=== PATIENT | male | born 1980 | race Caucasian/White ===

== ENCOUNTER 2024-01-06 09:18 | Emergency (ER) | payer OTHER, SELFPAY ==
[2024-01-06] VITALS (8 sets, daily range): BP systolic 125–139; BP diastolic 77–94; PULSE 98–112; RESP 12–17; TEMP 36.5; O2SAT 97–100
--- NOTE | ~2024-01-06 | XR_ITS ---
EXAMINATION: XR chest 2V 01/06/2024 09:50 INDICATION: Shortness of breath and weakness PROCEDURE: 2 view chest COMPARISON: 09/14/2015 FINDINGS: The lungs are clear. The cardiomediastinal silhouette is within normal limits. There are no pleural effusions. There is no pneumothorax suspected. IMPRESSION: 1: NO ACUTE CARDIOPULMONARY DISEASE. Reviewed, dictated and finalized at location B.
--- NOTE | 2024-01-06 09:28 | ECG_ITS ---
SEE SCANNED COPY FOR CONFIRMED REPORT. MTDD
[2024-01-06 09:38] LABS: Glucose Point of Care 149 mg/dl (65-105)
[2024-01-06 09:48] LABS: Basophils Absolute Auto 0.1 K/mm3 (0.0-0.1); Basophils Percent Auto 0.9 % (0.2-1.2); Eosinophils Absolute Auto 0.2 K/mm3 (0-0.3); Eosinophils Percent Auto 2.2 % (0-4.4); Hematocrit 49.6 % (42.0-52.0); Hemoglobin 17.3 g/dL (14.0-18.0); Immature Granulocyte Absolute 0.07 K/mm3 (0.00-0.031); Lymphocytes Absolute Auto 1.84 K/mm3 (0.9-3.2); Lymphocytes Percent Auto 27.5 % (18.3-44.2); Mean Corpuscular HGB Conc 34.9 g/dl (32-36); Mean Corpuscular Hemoglobin 32.7 pg (26-34); Mean Corpuscular Volume 93.8 fl (80-100); Mean Platelet Volume 9.4 fl (7.4-10.4); Monocytes Absolute Auto 0.6 K/mm3 (0.1-0.6); Monocytes Percent Auto 8.5 % (2.6-8.5); Neutrophils Percent Auto 59.9 % (45.5-73.1); Platelet Count Result 234 k/mm3 (150-375); Red Blood Count 5.29 M/mm3 (4.6-6.20); Red Cell Distribution Width 11.4 % (11.5-14.5); White Blood Count 6.7 K/mm3 (4.5-10.0)
[2024-01-06 09:58] LABS: Alanine Aminotransferase 74 U/L (6-50); Albumin Level 5.2 g/dL (3.5-5.1); Alkaline Phosphatase 69 U/L (38-126); Anion Gap 16 mmol/L (4-12); Aspartate Amino Transferase 70 U/L (17-59); Blood Urea Nitrogen 19 mg/dL (9-20); Carbon Dioxide 18 mmol/L (22-30); Chloride 102 mmol/L (98-107); Estimated CRCL calculation 92 ml/min; Estimated Glomerular Filt Rate > 60; Glucose 133 mg/dL (65-110); Potassium 5.6 mmol/L (3.4-5.0); Sodium 136 mmol/L (137-145)
[2024-01-06 10:03] LABS: D Dimer < 0.22 ug/mL (<0.48)
[2024-01-06] MEDS: SODIUM CHLORIDE 0.9% IV 1,000 ML 999 ML IV CONT ×2 (10:08→12:04)
[2024-01-06 10:12] LABS: Troponin I < 0.012 ng/mL (0.000-0.034)
--- NOTE | 2024-01-06 11:57 | ED.GENADULT ---
HPI - General Adult General Chief complaint: Unspecified Stated complaint: anxiety Time Seen by Provider: 01/06/24 09:35 Source: patient Mode of arrival: EMS Limitations: no limitations History of Present Illness HPI narrative: Patient is a 43-year-old male who presents the ED via EMS with report of lightheadedness, chest tightness. Patient reports when he woke up this morning he felt somewhat lightheaded. He went to work and began feeling increasingly dizzy/lightheaded, felt near syncopal, developed cold sweats, paresthesias, nausea. He then began feeling short of breath and developed chest tightness/heaviness, described as though something was EMS was then contacted to bring patient here. Patient states he feels improved currently. He denies any other recent illness. Denies focal weakness. Denies history of cardiac disease. Denies history of anxiety. States he has been eating and drinking normally. Related Data Allergies Allergy/AdvReac Type Severity Reaction Status Date / Time No Known Allergies Allergy Unverified 06/13/15 09:49 Review of Systems Review of Systems: CONSTITUTIONAL: See HPI. CARDIOVASCULAR: See HPI. RESPIRATORY: See HPI. GASTROINTESTINAL: See HPI. GENITOURINARY: Denies dysuria or hematuria. MUSCULOSKELETAL: Denies back pain, extremity pain, myalgia. NEUROLOGIC: See HPI. All systems reviewed & are unremarkable except as noted in HPI and below Exam Narrative: GENERAL: Well appearing, well-nourished, non-toxic, in no acute distress. HEAD: Normocephalic, atraumatic. EYES: PERRL/EOMI, conjunctiva clear. No nystagmus. RESPIRATORY: Airway patent, respirations nonlabored. Clear to auscultation bilaterally, no rales, rhonchi, wheezing. No focal lung sounds. CARDIOVASCULAR: Borderline tachycardic with regular rhythm without murmurs, rubs, or gallops. ABDOMINAL: Soft, nontender, nondistended. Normoactive BS. MUSCULOSKELETAL: Moves all extremities. No gross deformities. No lower extremity edema. No calf tenderness. SKIN: Warm, dry, normal color. NEURO: A&O X3. Speech clear. Cranial nerves II-XII grossly intact. Steady gait. No ataxic movements. No focal deficits. PSYCHIATRIC: Mildly anxious. Normal interaction. Course Vital Signs Vital signs: Vital Signs Temperature 97.7 F 01/06/24 09:23 Pulse Rate 104 H 01/06/24 09:23 Respiratory Rate 16 01/06/24 09:23 Blood Pressure 139/94 H 01/06/24 09:23 Pulse Oximetry 100 01/06/24 09:23 Oxygen Delivery Room Air 01/06/24 09:23 Temperature 97.7 F 01/06/24 09:23 Pulse Rate 99 01/06/24 14:33 Respiratory Rate 15 01/06/24 14:33 Blood Pressure 125/87 01/06/24 14:33 Pulse Oximetry 97 01/06/24 14:33 Oxygen Delivery Room Air 01/06/24 09:23 Medical Decision Making MDM Narrative Medical decision making narrative: Patient presented to ED with dizziness, near syncopal episode, chest tightness. Vitals are stable upon arrival. Patient mildly tachycardic. Fluids initiated. He is mildly anxious upon my evaluation. Neurologically intact. No focal deficits appreciated on exam. He denies any further chest discomfort upon my evaluation. EKG with some nonspecific ST changes, no acute ST elevation or depression. Baseline troponin is undetectable. Cbc without leukocytosis. CMP with potassium of 5.6, bicarb 18, anion gap of 16. Blood glucose 133. No history of diabetes. Fluids ongoing. Otherwise stable electrolytes, stable kidney function. Magnesium borderline, IV replacement ordered. Minimal transaminitis. Patient without any abdominal discomfort. Chest x-ray is clear. D-dimer is within normal limits. Orthostatic vital signs were evaluated and no significant drop in blood pressure. Patient given 2 L of fluid in the ED. Repeat BMP showing resolution of hyperkalemia, bicarb up to 20, anion gap closed. 3 hr troponin resulted undetectable. Patient has remained stable throughout ED stay. He is feeling much better with
[2024-01-06 12:01] LABS: Magnesium 1.6 mg/dL (1.6-2.3)
[2024-01-06] MEDS: MAGNESIUM SULF 2 GM/WATER 50ML 2 GM/50 ML BAG IVPB (12:14)
[2024-01-06 13:08] LABS: Troponin I < 0.012 ng/mL (0.000-0.034)
--- NOTE | 2024-01-06 13:14 | PC.NURSE ---
Lab called regarding add on BMP. To add to specimen sent for 3 hour troponin.
[2024-01-06 13:23] LABS: Anion Gap 6 mmol/L (4-12); Blood Urea Nitrogen 16 mg/dL (9-20); Calcium 7.9 mg/dL (8.4-10.2); Carbon Dioxide 20 mmol/L (22-30); Chloride 108 mmol/L (98-107); Estimated CRCL calculation 117 ml/min; Estimated Glomerular Filt Rate > 60; Glucose 98 mg/dL (65-110); Potassium 3.9 mmol/L (3.4-5.0); Sodium 134 mmol/L (137-145)
== END 2024-01-06 14:34 | disposition home or self-care (01) ==
PROVIDERS: Student in an Organized Health Care Education/Training Program; Emergency Provider Physician Assistant
DX: R07.89 Other chest pain (principal); R42 Dizziness and giddiness; E86.0 Dehydration; R00.0 Tachycardia, unspecified
CPT/HCPCS: 36415; 71046; 80048; 80053; 82948; 83735; 84484; 85025; 85380; 93005; 96361; 96365; 99284; J3475; J7030